=== PATIENT | male | born 1960 | race Caucasian/White ===

== ENCOUNTER → 2022-08-24 09:26 | Outpatient (CLI) | payer OTHER, SELFPAY ==
[2022-08-24 11:49] LABS: COVID19 -Nasal RAPID Negative (Negative)
== END ==
PROVIDERS: Family Provider Family Medicine Geriatric Medicine; PCP Family Medicine; Visit Provider Surgery
DX: Z20.822 Contact with and (suspected) exposure to COVID-19 (principal); Z01.812 Encounter for preprocedural laboratory examination
CPT/HCPCS: 87635; C9803

== ENCOUNTER 2022-08-25 07:31 | Day surgery (SDC) | payer OTHER, SELFPAY ==
[2022-08-18 12:46] VITALS: BMI 25.0
[2022-08-25] VITALS (8 sets, daily range): BP systolic 103–162; BP diastolic 66–98; PULSE 47–63; RESP 14–25; TEMP 36.1–36.3; O2SAT 96–100; BMI 25.0
--- NOTE | 2022-08-25 08:35 | PM.HP.1 ---
History of Present Illness History of Present Illness Date Patient Seen: 08/25/22 Time Patient Seen: 08:35 Chief complaint: SDC Narrative: 62M with symptomatic left inguinal hernia here for elective open repair. No interval changes in health. Patient History Medical History Asthma GERD (gastroesophageal reflux disease) Hyperlipidemia Surgical History H/O sinus surgery History of surgery (~1984) S/P rotator cuff repair (2012) Family & Social History Social History: household members spouse Tobacco & Substance use: Smoking Status Never smoker alcohol intake current alcohol intake frequency 0-2 drinks per day Substance Use Type does not use Meds Home Medications and Allergies Home Medications Medication Instructions Recorded Confirmed Type budesonide-formoterol HFA 160 1 puff inhalation BID 08/18/22 08/18/22 History mcg-4.5 mcg/actuation aerosol inhaler (Symbicort) rosuvastatin 5 mg tablet 5 mg PO BID 08/18/22 08/18/22 History Allergies Allergy/AdvReac Type Severity Reaction Status Date / Time No Known Drug Allergies Allergy Verified 08/24/22 15:09 Exam Narrative Exam Narrative: Gen-Adult man alert and oriented no distress Abdomen-Soft left inguinal hernia marked with my initials Assessment & Plan Assessment and plan (1) Left inguinal hernia: Status: Acute Assessment & Plan narrative: 62M with reducible left inguinal hernia here for open elective repair. Overview of operation was again discussed including risks of bleeding, infection, pain, reoccurrence. Verbal and written consent obtained. Time Spent With Patient Critical Care time: I spent a total of [] minutes of critical care time on this patient's care today; this time is exclusive of procedural time.
[2022-08-25] MEDS: LACTATED RINGERS 1,000 ML 100 ML IV (08:37)
[2022-08-25] MEDS: CEFAZOLIN 2 GM/100 ML PREMIX 100 ML IV (08:42)
--- NOTE | 2022-08-25 08:59 | SUR.OPER ---
Supine on padded OR bed, head on pillow, arms secured on padded arm boards at <90 degrees abduction, legs uncrossed, safety belt at thigh,
[2022-08-25] MEDS: BUPIVACAINE 0.25% (PF) VIAL 30 ML INJ (09:09)
--- NOTE | 2022-08-25 09:51 | PM.OP.1 ---
Operative Date/Time/Diagnoses Date of procedure: 08/25/22 Time of procedure: 09:51 Pre-op diagnosis: Left inguinal hernia Post-op diagnosis: same Procedure & Clinicians Procedure: Open left inguinal hernia repair with mesh Same procedure as scheduled: Yes Indications: Symptomatic reducible left inguinal hernia Surgeon: Jose Antonio Toney Yes if Unassisted: Yes Anesthesia Type: General Operative Notes Findings: Moderate-sized direct floor defect. No indirect defect. Small cord lipoma. Specimen(s): none sent Estimated Blood Loss (mL): 10 Procedure in detail: The patient was placed supine on the table and bilateral lower extremity compression devices were applied. Anesthesia was induced they were sedated with propofol and received Ancef.. A time-out was performed. They were prepped and draped in sterile fashion. The left external inguinal ring and the anterior superior iliac crest were identified and marked. 1 finger breath above the inguinal ligament the skin was infiltrated with 0.25% bupivacaine. The skin incision was made, the subcutaneous tissues were divided with electrocautery exposing the external oblique aponeurosis which was then opened along the direction of its fibers. Using blunt dissection the internal oblique aporneurosis was from the external oblique upper leaflet. The cord was carefully dissected away from the inguinal canal adjacent to the pubic tubercle. The cord including the vas deferens, testicular bloody supply, ilioguinal and genital nerve were encircled with a [place] drain. A moderate size direct floor defect was identified and it was reduced into the abdomen and the internal oblique aporneuorsis was approximated to the inguinal ligament with Ethibond suture to reapproximate the floor over a plug of mesh. The cremasteric fibers surrounding the cord were divided adjacent to the internal ring. The vas deferens and the testicular vessels were preserved and protected. The cord contents were carefully explored. There was no evidence of an indirect hernia. There was a small cord lipoma which was skeletonized away from the vas deferens and testicular blood supply. A 7x 15 cm lightweight Bard Pro Loop hernia mesh was anchored to the insertion of the rectus muscle at the pubic tubercle such that there was approximately 2 cm of tubercle overlap with Ethibond. The inferior edge of the mesh was secured to the shelving edge of the inguinal ligament using Ethibond. Interrupted 3 0 Vicryl suture was used to anchor the superior aspect of the mesh to the conjoined tendon in several places. The tails were then reapproximated loosely around the spermatic cord. The tails of the mesh were then tucked under the external oblique aponeurosis. The repair was checked for hemostasis. The wound was irrigated with sterile saline. The external oblique aponeurosis was reapproximated in a running fashion using 3 0 Vicryl. The subcutaneous tissues were reapproximated with 3 0 Vicryl skin closed with 4 0 Monocryl followed by the application of Dermabond. At the end of the operation I ensured that both testicles were within the scrotum. The sponge instrument count at the end operation was correct. The patient emerged from anesthesia was extubated and transferred to the postoperative care unit in stable condition. A total of 30 ml of of 0.25% bupivicaine was used to infiltrate the skin. Complications: none Post-operative Condition: stable Disposition: same day surgery
[2022-08-25] MEDS: OXYCODONE IR 5 MG TABLET PO (10:02)
[2022-08-25] MEDS: ACETAMINOPHEN 325 MG TABLET PO ×2 (10:34→10:35)
== END 2022-08-25 10:54 | disposition home or self-care (01) ==
PROVIDERS: Family Provider Family Medicine Geriatric Medicine; PCP Family Medicine; Referring Provider Surgery; Visit Provider Surgery
PROC: (CPT 49505; principal; 2022-08-25 08:45)
DX: K40.90 Unilateral inguinal hernia, without obstruction or gangrene, not specified as recurrent (principal); J45.909 Unspecified asthma, uncomplicated; K21.9 Gastro-esophageal reflux disease without esophagitis; E78.5 Hyperlipidemia, unspecified; D17.6 Benign lipomatous neoplasm of spermatic cord
CPT/HCPCS: 49505; 00830; J0690; J1100; J2405; J2704; J3010

== ENCOUNTER → 2025-04-30 07:22 | Outpatient (CLI) | payer MEDICARE, OTHER, SELFPAY ==
[2025-04-30 08:30] LABS: Cholesterol 254 mg/dL (140-199); HDL Cholesterol 74 mg/dL (40-60); LDL Cholesterol Calculated 162 mg/dL (<100); Triglycerides 91 mg/dL (35-150)
== END ==
LOC: LAB 07:26
PROVIDERS: Family Provider Family Medicine Geriatric Medicine; PCP Family Medicine; Referring Provider Family Medicine; Visit Provider Family Medicine
DX: E78.5 Hyperlipidemia, unspecified (principal)
CPT/HCPCS: 36415; 80061

== ENCOUNTER → 2025-05-04 12:47 | Outpatient (CLI) | payer MEDICARE, OTHER, SELFPAY | LOC: LAB 12:48 | PROVIDERS: Family Provider Family Medicine Geriatric Medicine; PCP Family Medicine; Referring Provider Family Medicine; Visit Provider Family Medicine | DX: R19.7 Diarrhea, unspecified (principal) | CPT/HCPCS: 87177 ==

== ENCOUNTER → 2025-10-14 14:01 | Outpatient (CLI) | payer MEDICARE, OTHER, SELFPAY ==
[2025-10-14 14:53] LABS: Add Manual Diff / Slide Review NO; Hematocrit 40.8 % (41-53); Hemoglobin 14.1 g/dL (13.5-17.5); Lymphocytes Absolute Auto 1300 /uL (1100-4500); Mean Corpuscular HGB Conc 34.6 % (30-36); Mean Corpuscular Hemoglobin 32.6 PG (26-34); Mean Corpuscular Volume 94.0 fL (80-100); Platelet Count 171 X10^3/uL (150-400)
[2025-10-14 15:18] LABS: Alanine Aminotransferase 20 IU/L (<50); Albumin 4.2 g/dL (3.5-5.0); Albumin Globulin Ratio 1.8 (1.0-2.8); Alkaline Phosphatase 55 U/L (38-126); Blood Urea Nitrogen 17 mg/dL (9-20); Calcium 9.5 mg/dL (8.4-10.2); Carbon Dioxide 25 mmol/L (22-32); Chloride 105 mmol/L (98-107); Estimated Glomerular Filt Rate > 60 mL/min (>60); Globulin 2.4 g/dL (1.7-4.1); Glucose 95 mg/dL (70-99); HEMOLYSIS < 15 (0-50); Potassium 4.7 mmol/L (3.4-5.1); Sodium 137 mmol/L (137-145); Total Protein 6.6 g/dL (6.3-8.2)
== END ==
PROVIDERS: Family Provider Family Medicine Geriatric Medicine; Referring Provider Physician Assistant; Visit Provider Physician Assistant
DX: R21 Rash and other nonspecific skin eruption (principal)
CPT/HCPCS: 36415; 80053; 83516; 85025